=== PATIENT | male | born 1985 | race Caucasian/White ===

== ENCOUNTER 2019-01-13 00:01 | Emergency (ER) | payer OTHER ==
[~2019-01-13] VITALS: Ht 170.2 cm; Wt 90.7 kg
[~2019-01-13 00:01] MED LIST: CIPR500 PO; CLOT1TC TOP; PRED10 PO; PROM25 PO
[2019-01-13] MEDS ORDERED: CHOL10002 PO (00:07)
[2019-01-13] MEDS ORDERED: KETO10 PO (00:40)
== END 2019-01-13 00:45 | disposition home or self-care (01) ==
LOC: ER 00:01
DX: K03.81 Cracked tooth (principal); K02.9 Dental caries, unspecified; Z79.899 Other long term (current) drug therapy; Z87.891 Personal history of nicotine dependence
CPT/HCPCS: 64400; 99282-25

== ENCOUNTER 2020-08-22 19:34 | Emergency (ER) | payer OTHER ==
[~2020-08-22] VITALS: Ht 170.2 cm; Wt 90.7 kg
[~2020-08-22 19:34] MED LIST changes: +CHOL10002 PO; +KETO10 PO
[2020-08-22] MEDS ORDERED: Vitamin D2000 UNIT PO (19:54)
[2020-08-22] MEDS ORDERED: ZOLOFT25 MG PO (19:54)
== END 2020-08-22 20:33 | disposition home or self-care (01) ==
LOC: ER 19:34
DX: Z04.6 Encounter for general psychiatric examination, requested by authority (principal); S00.01XA Abrasion of scalp, initial encounter; F32.9 Major depressive disorder, single episode, unspecified; F17.290 Nicotine dependence, other tobacco product, uncomplicated; Z79.899 Other long term (current) drug therapy; W22.01XA Walked into wall, initial encounter
CPT/HCPCS: 99283

== ENCOUNTER 2020-08-31 00:30 | Emergency (ER) | payer OTHER ==
[~2020-08-31] VITALS: Ht 170.2 cm; Wt 90.7 kg
[~2020-08-31 00:30] MED LIST changes: +Vitamin D2000 UNIT PO; +ZOLOFT25 MG PO
== END 2020-08-31 01:31 | disposition home or self-care (01) ==
LOC: ER 00:30
DX: F32.9 Major depressive disorder, single episode, unspecified (principal); F17.290 Nicotine dependence, other tobacco product, uncomplicated; Z79.899 Other long term (current) drug therapy
CPT/HCPCS: 99284

== ENCOUNTER 2020-09-20 01:12 | Emergency (ER) | payer OTHER | END 2020-09-20 01:39 | disposition left against medical advice (07) | LOC: ER 01:12 | DX: Z53.21 Procedure and treatment not carried out due to patient leaving prior to being seen by health care provider (principal) ==

== ENCOUNTER 2021-03-15 00:59 | Emergency (ER) | payer OTHER ==
[~2021-03-15] VITALS: Ht 170.2 cm; Wt 95.2 kg
== END 2021-03-15 04:42 | disposition home or self-care (01) ==
LOC: ER 00:59
DX: S61.411A Laceration without foreign body of right hand, initial encounter (principal); F17.290 Nicotine dependence, other tobacco product, uncomplicated; Z79.899 Other long term (current) drug therapy; W26.0XXA Contact with knife, initial encounter
CPT/HCPCS: 12001; 90471; 90714; 99282-25

== ENCOUNTER 2021-03-30 04:41 | Inpatient (IN) | payer OTHER ==
[~2021-03-30] VITALS: Ht 170.2 cm; Wt 96.9 kg
[2021-03-30] MEDS ORDERED: CLON.1 PO (05:00)
[2021-03-30] MEDS ORDERED: AZIT250 PO (05:00)
[2021-03-30] MEDS ORDERED: Budeprion Xl300 MG PO (05:01)
[2021-03-30 05:26] LABS: BASOPHILS ABSOLUTE AUTO 0.04 K/mm3 (0.00-0.23); BASOPHILS PERCENT AUTO 0 % (0-2); EOSINOPHILS ABSOLUTE AUTO 0.03 K/mm3 (0.00-0.68); EOSINOPHILS PERCENT AUTO 0 % (0-6); Hematocrit 43.6 % (37.0-53.0); Hemoglobin 15.4 g/dL (13.5-17.5); IMMATURE GRAN ABSOLUTE AUTO 0.13 K/mm3 (0.00-0.10); IMMATURE GRAN PERCENT AUTO 1 % (0-1); LYMPHOCYTES ABSOLUTE AUTO 1.23 K/mm3 (0.84-5.20); LYMPHOCYTES PERCENT AUTO 7 % (21-46); MONOCYTES ABSOLUTE AUTO 1.87 K/mm3 (0.16-1.47); MONOCYTES PERCENT AUTO 10 % (4-13); Mean Corpuscular HGB 32.4 pg (26.0-34.0); Mean Corpuscular HGB Conc 35.3 g/dL (31.5-36.5); Mean Corpuscular Volume 92 fL (80-100); Mean Platelet Volume 9.8 fL (9.1-12.4); NEUTROPHILS ABSOLUTE AUTO 14.99 K/mm3 (1.96-9.15); NEUTROPHILS PERCENT AUTO 82 % (41-73); Platelet Count 225 K/mm3 (150-400); RDW Coefficient Variation 12.9 % (11.7-14.2); RDW Standard Deviation 42.8 fL (35.1-46.3); Red Blood Cell Count 4.75 M/mm3 (4.30-5.90); White Blood Cell Count 18.29 K/mm3 (4.00-11.30)
[2021-03-30 05:36] LABS: Anion Gap 7 mmol/L (6-16); Blood Urea Nitrogen 10 mg/dL (8-24); Bun/Creatinine Ratio 10.2 (12.0-20.0); CO2, Blood 24 mmol/L (21-32); Calcium, Blood 8.8 mg/dL (8.5-10.1); Chloride, Blood 106 mmol/L (98-108); Creatinine, Blood 0.98 mg/dL (0.60-1.20); Glomerular Filtration Rate >60 (60-); Glucose, Blood 120 mg/dL (70-99); Potassium, Blood 3.5 mmol/L (3.5-5.5); Sodium, Blood 137 mmol/L (136-145)
[2021-03-30] MEDS ORDERED: Vitamin D2000 UNIT PO (10:21)
[2021-03-30] MEDS ORDERED: ZOLP5 PO (10:22)
--- NOTE | 2021-03-30 10:45 | NUR ---
DR. FLORES UPDATED ON PATIENT STATUS. INFORMED THAT PATIENT'S SBP 190S TO LOW 200S. ASKED PATIENT IF HAS HIGH BLOOD PRESSURE AT HOME AND PATIENT STATED "PROBABLY". PATIENT DOES NOT TAKE HTN MEDS AT HOME. ORDERS OBTAINED.
--- NOTE | 2021-03-30 11:33 | NUR ---
INITIAL ASSESSMENT PATIENT ARRIVED TO UNIT AT 1015 FROM ER. PATIENT AMBULATED SELF WELL TO ICU BED FROM ER [facility]. PATIENT ALERT AND ORIENTED X 4. PATIENT STATES HE HAS HIGH- FUNCTIONING AUTISM. PATIENT AFEBRILE. PATIENT STATES 5/10 THROAT PAIN BUT THAT IT IS MANAGEABLE AT THIS TIME. THROAT IS SWOLLEN AND REDDENED. PATIENT STATES BREATHING FEELS A LITTLE BETTER THAN WHEN HE CAME INTO THE ER. PATIENT STATES IT IS A LITTLE DIFFICULT TO SWALLOW BUT AT THIS TIME HE IS ABLE TO MANAGE HIS OWN SALIVA. PATIENT STATES SWALLOWING IS PAINFUL. PATIENT SATTING 90% AND GREATER ON RA. LUNGS COARSE THROUGHOUT. PATIENT STATES HE IS COUGHING UP SMALL AMOUNT OF THIN, PINK SPUTUM. PATIENT IN SR TO ST, HR 90S TO LOW 100S. SBP 170S TO LOW 200S. SCDS IN PLACE. ORDER FOR PRN HYDRALAZINE OBTAINED AND ADMINISTERED. OTHER THAN THROAT/ SWALLOWING, GI APPEARS WNL. PATIENT NPO. PATIENT REPORTS HE HAS CHRONIC FREQUENT URINATION. SKIN APPEARS WNL. NS INFUSING AT 100 MLS/ HOUR. PATIENT ORIENTED TO UNIT, ROOM, AND CALL SYSTEM. BED LOW, CALL LIGHT IN REACH. WILL CONTINUE TO MONITOR PATIENT FREQUENTLY THROUGHOUT SHIFT.
--- NOTE | 2021-03-30 16:00 | NUR ---
PATIENT AFEBRILE. PATIENT REMAINS SATTING 90% AND GREATER ON RA. THROAT REMAINS 3 TO 4 ON THE ZHANNA GRADING SCALE. PATIENT DOES SAY THAT HE FEELS MUCH BETTER THAN WHEN HE CAME IN. HR 90S TO LOW 100S. SBP IN THE 160S. NO OTHER ACUTE CHANGES TO NOTE ON AT THIS TIME. WILL CONTINUE TO MONITOR.
--- NOTE | 2021-03-30 16:58 | NUR ---
SHIFT SUMMARY PATIENT HAS REMAINED ALERT AND ORIENTED X 4, AFEBRILE. PATIENT IS HIGH FUNCTIONING AUTISTIC. PATIENT'S MOTHER HAS BEEN IN THE ROOM HIS CARE HELPER TO HELP HIM MAKE DECISIONS. PATIENT DOES EXHIBIT ANXIETY. PATIENT CURRENTLY YELLING IN ROOM, ON THE PHONE WITH HIS GF. MOTHER AT BEDSIDE. PATIENT UPSET BECAUSE VISITING HOURS ARE OVER AT 1800 SO HIS FIANCE WOULD NOT BE ABLE TO COME VISIT. PATIENT AND MOTHER AWARE THAT MOTHER CAN STAY SHE IS HIS CARE/ DECISION HELPER. NURSES MADE EXCEPTION AND STATED THAT PATIENT'S FIANCE CAN COME AND VISIT FOR AN HOURS TIME BUT THEN MUST LEAVE. PATIENT AND FIANCE VERY UNHAPPY. PATIENT STATING HE IS GOING AMA. AMA PAPERWORK BROUGHT TO PATIENT. PATIENT STATES "I DON'T KNOW WHAT TO DO" AND DECIDED TO HAVE HIS GF COME BEFORE MAKING THE DECISION TO STAY OR LEAVE. PATIENT DEMONSTRATES INABILITY TO CONTROL EMOTIONS. PATIENT STATING "I NEED TO LEAVE TO SAVE MY RELATIONSHIP". PATIENT INFORMED THAT HE IS NOT BEING HELD CAPTIVE AND MAY LEAVE AT ANY POINT. PATIENT'S MOTHER IN AGREEANCE AND TRYING TO HELP CALM PATIENT DOWN. PATIENT HAS REMAINED AFEBRILE. PATIENT HAS CONTINUED TO HAVE PAIN WITH SWALLOWING. PATIENT STATES THAT PAIN HAS BEEN MANAGEABLE UP UNTIL ABOUT 30 MINUTES AGO. A CALL HAS BEEN PLACED TO DR. STEPHEN TO SEE IF PATIENT CAN HAVE CLEAR LIQUID DIET AND CEPACOL DROPS FOR THE THROAT PAIN. 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 PATIENT HAS BEEN INDEPENDENT IN ROOM. PATIENT HAS REMAINED SATTING 90% AND GREATER ON RA. THROAT HAS REMAINED ON A 3 TO 4 ON THE ZHANNA GRADING SCALE. PATIENT HAS REPORTED THAT HIS BREATHING AND VOICE ARE MUCH IMPROVED SINCE BEING ADMITTED. PATIENT HAS REMAINED SR TO ST, HR 90S TO 120S. SBP 140S TO LOW 200S. PRN HYDRALAZINE GIVEN OT. PATIENT HAS REMAINED NPO. NO BM THIS SHIFT. PATIENT VOIDING SUFFICIENTLY. NO CHANGE TO SKIN. PATIENT MOVING SELF AROUND IN BED. NS INFUSING AT 100 MLS/ HOUR. BED LOW, CALL LIGHT IN REACH. PATIENT'S GF SUPPOSED TO BE IN AT ANY TIME.
--- NOTE | 2021-03-30 18:00 | NUR ---
FIANCE HERE TO VISIT.
--- NOTE | 2021-03-30 20:47 | NUR ---
DAWIT STAYING PER REPORT, DAWIT HAD BEEN TOLD THAT SHE HAD TO LEAVE @1900 DUE TO VISITOR FRANDY. 1930 - FIANCE ASKED TO LEAVE IN ACCORDANCE WITH THE AGREEMENT MADE PRIOR IN ICU. PT AND FIANCE UPSET AND REFUSING. 1939 - NURSING TRANSITION ASSISTANT TO ROOM AND DISCUSSED WITH PATIENT AND FIANCE THE RULES AND EXTENUATING CIRCUMSTANCES. IT WAS FOUND THAT THE PATIENT, WITH HIS AUTISM, HAS HIGH ANXIETY AND STRUGGLES TO FUNCTION IN NEW SETTINGS WITHOUT A SUPPORT PERSON. 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 WITH ALL OF THIS INFORMATION FOUND, EXCEPTION MADE AND PERMISSION GIVEN BY NURSING TRANSITION ASSISTANT LILLIANA Coleman FOR DAWIT TO REMAIN OVERNIGHT.
[2021-03-31 04:16] LABS: BASOPHILS ABSOLUTE AUTO 0.02 K/mm3 (0.00-0.23); BASOPHILS PERCENT AUTO 0 % (0-2); EOSINOPHILS PERCENT AUTO 0 % (0-6); Hematocrit 44.5 % (37.0-53.0); Hemoglobin 15.2 g/dL (13.5-17.5); IMMATURE GRAN ABSOLUTE AUTO 0.14 K/mm3 (0.00-0.10); IMMATURE GRAN PERCENT AUTO 1 % (0-1); LYMPHOCYTES ABSOLUTE AUTO 1.07 K/mm3 (0.84-5.20); LYMPHOCYTES PERCENT AUTO 6 % (21-46); MONOCYTES ABSOLUTE AUTO 1.27 K/mm3 (0.16-1.47); MONOCYTES PERCENT AUTO 7 % (4-13); Mean Corpuscular HGB 32.1 pg (26.0-34.0); Mean Corpuscular HGB Conc 34.2 g/dL (31.5-36.5); Mean Corpuscular Volume 94 fL (80-100); Mean Platelet Volume 9.8 fL (9.1-12.4); NEUTROPHILS ABSOLUTE AUTO 15.96 K/mm3 (1.96-9.15); NEUTROPHILS PERCENT AUTO 86 % (41-73); Platelet Count 247 K/mm3 (150-400); RDW Coefficient Variation 13.1 % (11.7-14.2); RDW Standard Deviation 44.5 fL (35.1-46.3); Red Blood Cell Count 4.73 M/mm3 (4.30-5.90); White Blood Cell Count 18.46 K/mm3 (4.00-11.30)
[2021-03-31 04:46] LABS: Anion Gap 4 mmol/L (6-16); Blood Urea Nitrogen 11 mg/dL (8-24); Bun/Creatinine Ratio 12.6 (12.0-20.0); CO2, Blood 27 mmol/L (21-32); Calcium, Blood 8.8 mg/dL (8.5-10.1); Chloride, Blood 107 mmol/L (98-108); Creatinine, Blood 0.87 mg/dL (0.60-1.20); Glomerular Filtration Rate >60 (60-); Glucose, Blood 115 mg/dL (70-99); Potassium, Blood 4.3 mmol/L (3.5-5.5); Sodium, Blood 138 mmol/L (136-145)
--- NOTE | 2021-03-31 05:14 | NUR ---
SHIFT SUMMARY ASSUMED CARE OF PT AT 1900. PT IS A/OX4. HEART SOUNDS REGULAR, LUNG SOUNDS CLEAR. PT STILL COMPLAINS OF A SORE THROAT, UPON ASSESSMENT THROAT IS SWOLLEN AND WARM. PT WAS CLEARED TO DRINK CLEAR LIQUIDS AND TOLERATED WELL, PT TOOK TYLENOL FOR PAIN. PT WAS INDEPENDENT TO BATHROOM. PT STAYED IN ROOM TILL ABOUT 2200 WHEN SHE WENT HOME FOR THE NIGHT. PT HAS NOT C/O SOB BUT HE HAS C/O HIS THROAT HURTING WHEN HE SWOLLOWS. CALL LIGHT IN REACH, BED IN LOWEST POSITION.
--- NOTE | 2021-03-31 17:46 | NUR ---
SHIFT SUMMARY; ASSUMED CARE AT 0700. A/A/OX4 THROUGHOUT SHIFT. SPEAKING FULL SENTENCES AND TOLERATING PO FLUIDS, MANAGING SECRETIONS WITHOUT DIFFICULTY. INDEPENDANT IN ROOM. PREPARING FOR DC TOMORROW. WILL CONTINUE TO MONITOR AND TREAT UNTIL CHANGE OF SHIFT.
[2021-04-01 03:59] LABS: BASOPHILS ABSOLUTE AUTO 0.03 K/mm3 (0.00-0.23); BASOPHILS PERCENT AUTO 0 % (0-2); EOSINOPHILS ABSOLUTE AUTO 0.01 K/mm3 (0.00-0.68); EOSINOPHILS PERCENT AUTO 0 % (0-6); Hematocrit 43.7 % (37.0-53.0); Hemoglobin 15.1 g/dL (13.5-17.5); IMMATURE GRAN ABSOLUTE AUTO 0.14 K/mm3 (0.00-0.10); IMMATURE GRAN PERCENT AUTO 1 % (0-1); LYMPHOCYTES ABSOLUTE AUTO 1.58 K/mm3 (0.84-5.20); LYMPHOCYTES PERCENT AUTO 11 % (21-46); MONOCYTES ABSOLUTE AUTO 1.24 K/mm3 (0.16-1.47); MONOCYTES PERCENT AUTO 8 % (4-13); Mean Corpuscular HGB 32.4 pg (26.0-34.0); Mean Corpuscular HGB Conc 34.6 g/dL (31.5-36.5); Mean Corpuscular Volume 94 fL (80-100); Mean Platelet Volume 9.5 fL (9.1-12.4); NEUTROPHILS ABSOLUTE AUTO 11.99 K/mm3 (1.96-9.15); NEUTROPHILS PERCENT AUTO 80 % (41-73); Platelet Count 277 K/mm3 (150-400); RDW Coefficient Variation 13.1 % (11.7-14.2); Red Blood Cell Count 4.66 M/mm3 (4.30-5.90); White Blood Cell Count 14.99 K/mm3 (4.00-11.30)
[2021-04-01 04:21] LABS: Anion Gap 8 mmol/L (6-16); Blood Urea Nitrogen 15 mg/dL (8-24); Bun/Creatinine Ratio 16.6 (12.0-20.0); CO2, Blood 25 mmol/L (21-32); Calcium, Blood 8.7 mg/dL (8.5-10.1); Chloride, Blood 105 mmol/L (98-108); Glomerular Filtration Rate >60 (60-); Glucose, Blood 98 mg/dL (70-99); Potassium, Blood 3.8 mmol/L (3.5-5.5); Sodium, Blood 138 mmol/L (136-145)
--- NOTE | 2021-04-01 04:42 | NUR ---
SHIFT SUMMARY ASSUMED CARE OF PT AT 1900. PT IS A/OX4. HEART SOUNDS REGULAR, LUNG SOUNDS CLEAR. PT IS INDEPENDENT TO THE BATHROOM. PT SAYS THAT HIS THROAT IS FEELING A LOT BETTER BUT IT STILL HURTS TO SWOLLOW. UPON ASSESSMENT PT THROAT FEELS LESS SWOLLEN THAN YESTERDAY. PT TOLERATING FULL LIQUID DIET. CALL LIGHT IN REACH, BED IN LOWEST POSTION.
--- NOTE | 2021-04-01 08:45 | NUR ---
INITIAL ASSESSMENT: PT IS RESTING WITH EYES CLOSED ON HIS LEFT SIDE, EASILY AWAKENS WITH ASSESSMENT. PT IS ORIENTED. DENIES PAIN, REPORTS MINIMAL SORE THROAT. HRR. LS CTA. BT+. PPP. VSS. AM MEDS GIVEN WITH OUT DIFFICULTY, ONE AT A TIME. PT REPORTS NO DIFFICULTY SWALLOWING, DR. STEPHEN HAS BEEN TO SEE THE PATIENT, PLAN FOR DC TODAY IF CLEARERD BY HOSPITALIST. PT DENIES ADDITIONAL NEEDS AT THIS TIME, CALL LIGHT IN REACH. WILL CONTINUE TO MONITOR.
[2021-04-01] MEDS ORDERED: Acetaminophen650 M1 PO (11:40)
[2021-04-01] MEDS ORDERED: BENMENLOZ MT (11:41)
[2021-04-01] MEDS ORDERED: AMOCLA875 PO (11:42)
[2021-04-01] MEDS ORDERED: PRED10 PO (11:43)
[2021-04-01] MEDS ORDERED: CRANBERRY CONC1 EAC1 PO (11:43)
[2021-04-01] MEDS ORDERED: NICO21TP TOP (11:44)
[2021-04-01] MEDS ORDERED: ONDA4ODT MM (11:44)
--- NOTE | 2021-04-01 12:30 | NUR ---
PATIENT VERBALIZED UNDERSTANDING OF DISCHARGE INSTRUCTIONS. IV DC'D CATH INTACT. PT AMBULATED HOME WITH MOTHER.
== END 2021-04-01 12:30 | disposition home or self-care (01) | DRG 153 ==
LOC: ER 04:41 → PCU 04:42 → ICUW 04:42 → PCU 18:50
PROVIDERS: Emergency Medicine; Family Medicine; ADMIT Internal Medicine
DX: J04.31 Supraglottitis, unspecified, with obstruction (principal); F84.0 Autistic disorder; R00.0 Tachycardia, unspecified; D72.829 Elevated white blood cell count, unspecified; R03.0 Elevated blood-pressure reading, without diagnosis of hypertension; F32.9 Major depressive disorder, single episode, unspecified; G47.9 Sleep disorder, unspecified; F17.290 Nicotine dependence, other tobacco product, uncomplicated; F12.90 Cannabis use, unspecified, uncomplicated; Z79.899 Other long term (current) drug therapy; Z90.49 Acquired absence of other specified parts of digestive tract
CPT/HCPCS: 36415; 70491; 80048; 83605; 85025; 87040; 87081; 87430; 94640; 94760; 96365-59; 96366; 96375; 96375-59; 96376; 99285-25; A9270; G0378; J0360; J0696; J1100; J7030; Q9967

== ENCOUNTER → 2023-08-23 | Outpatient (CLI) | payer OTHER ==
[~2023-08-23] MED LIST changes: +AMOCLA875 PO; +AZIT250 PO; +Acetaminophen650 M1 PO; +BENMENLOZ MT; +Budeprion Xl300 MG PO; +CLON.1 PO; +CRANBERRY CONC1 EAC1 PO; +NICO21TP TOP; +ONDA4ODT MM; +ZOLP5 PO
[2023-08-23 16:38] LABS: BASOPHILS ABSOLUTE AUTO 0.03 K/mm3 (0.00-0.23); BASOPHILS PERCENT AUTO 0 % (0-2); EOSINOPHILS ABSOLUTE AUTO 0.03 K/mm3 (0.00-0.68); EOSINOPHILS PERCENT AUTO 0 % (0-6); Hematocrit 51.7 % (37.0-53.0); Hemoglobin 18.3 g/dL (13.5-17.5); IMMATURE GRAN ABSOLUTE AUTO 0.06 K/mm3 (0.00-0.10); IMMATURE GRAN PERCENT AUTO 1 % (0-1); LYMPHOCYTES ABSOLUTE AUTO 1.73 K/mm3 (0.84-5.20); LYMPHOCYTES PERCENT AUTO 18 % (21-46); MONOCYTES ABSOLUTE AUTO 0.83 K/mm3 (0.16-1.47); MONOCYTES PERCENT AUTO 9 % (4-13); Mean Corpuscular HGB 35.3 pg (26.0-34.0); Mean Corpuscular HGB Conc 35.4 g/dL (31.5-36.5); Mean Corpuscular Volume 100 fL (80-100); Mean Platelet Volume 9.5 fL (9.1-12.4); NEUTROPHILS ABSOLUTE AUTO 6.99 K/mm3 (1.96-9.15); NEUTROPHILS PERCENT AUTO 72 % (41-73); Platelet Count 253 K/mm3 (150-400); RDW Coefficient Variation 12.5 % (11.7-14.2); RDW Standard Deviation 46.4 fL (35.1-46.3); Red Blood Cell Count 5.18 M/mm3 (4.30-5.90); White Blood Cell Count 9.67 K/mm3 (4.00-11.30)
[2023-08-23 16:47] LABS: Albumin, Blood 4.2 g/dL (3.4-5.0); Bilirubin, Total 0.8 mg/dL (0.1-1.0); Bun/Creatinine Ratio 7.1 (12.0-20.0); Calcium, Blood 9.5 mg/dL (8.5-10.1); Creatinine, Blood 0.85 mg/dL (0.60-1.20); Globulin, Blood 4.2 g/dL (2.2-4.0); Potassium, Blood 4.1 mmol/L (3.5-5.5); Total Protein, Blood 8.4 g/dL (6.4-8.2)
== END ==
LOC: LAB SHORT 16:33 → LAB 16:33
PROVIDERS: Physician Assistant Surgical
DX: M62.81 Muscle weakness (generalized) (principal)
CPT/HCPCS: 80053; 85025